=== PATIENT | female | born 1965 | race African-American/Black ===

== ENCOUNTER 2019-02-17 05:57 | Day surgery (SDC) | payer MEDICARE ==
[2019-02-16 09:26] VITALS: BMI 36.0
[2019-02-17 06:47] LABS: #Basophils 0.1 thou/uL (0.0-0.2); #Eosinphils 0.2 thou/uL (0.0-0.7); #Lymphocytes 2.5 thou/uL (1.20-3.40); #Monocytes 0.6 thou/uL (0.11-0.59); #Neutrophils 3.8 thou/uL (1.40-6.50); %Eosinophils 3.5 % (0.0-10.0); %Lymphocytes 35.2 % (21.0-51.0); %Monocytes 8.2 % (0.0-10.0); %Neutrophils 52.1 % (42.0-75.0); Hemoglobin 13.7 g/dL (12.0-16.0); Mean Corpuscular HGB CONC 32.2 g/dL (32.0-36.0); Mean Corpuscular Hemoglobin 29.1 pg (27.0-31.0); Mean Corpuscular Volume 90.5 fL (78.0-98.0); Mean Platelet Volume 6.5 fL (7.4-10.4); Platelet Count 404 thou/uL (130-400); RBC Distribution Width 12.4 % (11.5-14.5); White Blood Cell (WBC) Count 7.2 thou/uL (4.8-10.8)
[2019-02-17] MEDS ORDERED: Clindamycin/D5W 600 mg/50 ml Premix Bag ONE (06:47)
[2019-02-17 07:06] LABS: Anion Gap 12 mmol/L (10-20); BUN (Urea Nitrogen) 19 mg/dL (9.8-20.1); Calc. Creatinine Clearance 113 mL/min (70-130); Carbon Dioxide 21 mmol/L (22-29); Chloride 110 mmol/L (98-107); Estimated GFR-MDRD 75; Glucose 86 mg/dL (70-105); Potassium 3.9 mmol/L (3.5-5.1); Sodium 139 mmol/L (136-145)
[2019-02-17] MEDS ORDERED: Fentanyl 100 MCG/2 ML VIAL ONE (07:12)
--- NOTE | 2019-02-17 12:54 | OP ---
DATE OF PROCEDURE: 02/17/2019 PREOPERATIVE DIAGNOSIS: Lateral meniscus tear. POSTOPERATIVE DIAGNOSIS: Lateral meniscus tear, 5 separate loose bodies. PROCEDURES: Arthroscopic lateral meniscectomy and removal of loose bodies. FINDINGS: [id number] arthritis, lateral compartment, multiple loose bodies, complex tear of the lateral meniscus. PROCEDURE IN DETAIL: The patient taken to the operating room where general anesthesia induced. Right leg was prepped in sterile fashion. Scope was placed in the lateral portal, probe was placed in a medial portal. Findings were as above. I removed multiple loose bodies through the medial compartment portal in the medial compartment and anterior and medial compartment. I removed no loose body from the lateral compartment, most of the lateral meniscus was torn in a large bucket-handle type configuration detached anteriorly and posteriorly, removed as large pieces, removed the remainder of the meniscus. There was exposed bone on the lateral femoral condyle, lateral tibial plateau, which were in contact. The knee was drained. Sterile dressings applied. Job ID: [id number]
== END 2019-02-17 09:55 | disposition home or self-care (01) ==
LOC: SDC 05:57
PROVIDERS: ATTEND Orthopaedic Surgery
PROC: 0SBC4ZZ Excision of Right Knee Joint, Percutaneous Endoscopic Approach (ICD-10-PCS; principal; 2019-02-17)
DX: S83.251A Bucket-handle tear of lateral meniscus, current injury, right knee, initial encounter (principal); M17.11 Unilateral primary osteoarthritis, right knee; I10 Essential (primary) hypertension; K21.9 Gastro-esophageal reflux disease without esophagitis; F32.9 Major depressive disorder, single episode, unspecified; Z79.899 Other long term (current) drug therapy; Z88.0 Allergy status to penicillin; X58.XXXA Exposure to other specified factors, initial encounter
CPT/HCPCS: 36415; 80048; 85025; J3010; J3490

== ENCOUNTER 2023-11-06 10:31 | Outpatient (CLI) | payer OTHER ==
[2023-11-06 12:43] LABS: #Basophils 0.07 10x3/uL (0.0-0.2); #Eosinphils 0.28 10x3/uL (0.0-0.5); #Monocytes 0.49 10x3/uL (0.0-1.1); #Neutrophils 2.87 10x3/uL (1.5-8.4); %Basophils 1.3 % (0.0-2.0); %Eosinophils 5.1 % (0.0-6.0); %Lymphocytes 32.1 % (18.0-47.0); %Monocytes 8.9 % (0.0-10.0); %Neutrophils 52.4 % (40.0-75.0); Hematocrit 38.9 % (34.9-44.5); Hemoglobin 13.2 g/dL (12.0-15.5); Mean Corpuscular HGB CONC 33.9 g/dL (32.0-36.0); Mean Corpuscular Hemoglobin 30.6 pg (27.0-33.0); Mean Corpuscular Volume 90.3 fL (81.6-98.3); Mean Platelet Volume 9.5 fL (7.4-10.4); Platelet Count 350 10x3/uL (150-450); RBC Distribution Width 12.8 % (11.5-14.5); Red Blood Cell (RBC) Count 4.31 10x6/uL (3.90-5.03); White Blood Cell (WBC) Count 5.5 10x3/uL (3.5-10.5)
[2023-11-06 13:05] LABS: Anion Gap 14 mmol/L (10-20); BUN (Urea Nitrogen) 16 mg/dL (9.8-20.1); Calc. Creatinine Clearance 0 mL/min (70-130); Carbon Dioxide 28 mmol/L (22-29); Chloride 102 mmol/L (98-107); Estimated GFR 66; Glucose 75 mg/dL (70-105); Potassium 3.8 mmol/L (3.5-5.1); Sodium 140 mmol/L (136-145)
== END 2023-11-06 10:32 | disposition home or self-care (01) ==
LOC: LABBT 10:31
PROVIDERS: ATTEND Orthopaedic Surgery
DX: Z01.818 Encounter for other preprocedural examination (principal); M17.11 Unilateral primary osteoarthritis, right knee
CPT/HCPCS: 80048; 85025; 85610; 87081; 93005; 93010

== ENCOUNTER 2023-11-10 07:00 | Observation (INO) | payer OTHER ==
[2023-11-10] MEDS ORDERED: Vancomycin (BATCH) 1.5 GM/300 ML BAG ONE (07:17)
[2023-11-10] MEDS ORDERED: Sodium Chloride 0.9% 100 ML ONE ×2 (07:17→09:32)
[2023-11-10] MEDS ORDERED: Tranexamic Acid 1,000 MG/10 ML VIAL ONE (07:17)
[2023-11-10] MEDS ORDERED: Midazolam HCl 2 mg/2 ml Vial ONE (07:49)
[2023-11-10] MEDS ORDERED: fentaNYL 50 mcg/mL 1 mL Vial ONE ×5 (07:49→14:34)
[2023-11-10] MEDS ORDERED: Bupivacaine PF 0.5% 30 ML VIAL ONE (07:50)
[2023-11-10] MEDS ORDERED: PROPOFOL 20 ML ONE (08:52)
[2023-11-10] MEDS ORDERED: fentaNYL PF 100 MCG/2 ML SYRINGE ONE (08:52)
[2023-11-10] MEDS ORDERED: EPINEPHrine 1 MG/ML VIAL ONE (09:08)
[2023-11-10] MEDS ORDERED: Bupivacaine 0.25% HCL 30 ML VIAL ONE (09:09)
[2023-11-10] MEDS ORDERED: CEFAZOLIN 2 GM VIAL ONE (09:31)
[2023-11-10] MEDS ORDERED: Ketorolac Tromethamine 30 MG (1 mL) VIAL ONE (10:00)
[2023-11-10] MEDS ORDERED: Lidocaine 1% PF 5 ML VIAL ONE (10:00)
[2023-11-10] MEDS ORDERED: Dexamethasone 20 MG/5 ML VIAL ONE (10:00)
[2023-11-10] MEDS ORDERED: fentaNYL 50 mcg/mL 1 mL Vial SLOW IVP PRN (10:11)
[2023-11-10] MEDS ORDERED: Zolpidem Tartrate 5 MG TAB PO PRN ×2 (10:15→13:47)
[2023-11-10] MEDS ORDERED: Promethazine HCl 25 MG/ML VIAL IM PRN ×2 (10:15→13:47)
[2023-11-10] MEDS ORDERED: HYDROcodone/Acetaminophen 5/325 mg Tablet PO PRN (10:15)
[2023-11-10] MEDS ORDERED: Ondansetron PF 4 MG/2 ML Vial IVP PRN ×2 (10:15→13:47)
[2023-11-10] MEDS ORDERED: Ropivacaine 0.2% 550 ML 550 ML NERVE BLCK SCH (10:15)
[2023-11-10] MEDS ORDERED: traMADol HCl 50 MG TAB PO PRN (10:15)
[2023-11-10] MEDS ORDERED: HYDROmorphone 2 MG/ML VIAL ONE (10:22)
[2023-11-10] MEDS ORDERED: PHENYLEPHRINE-NS 100 MCG/ML 10 ML SYRINGE ONE ×2 (10:50→11:04)
[2023-11-10] MEDS ORDERED: diphenhydrAMINE 25 MG CAP PO PRN (13:47)
[2023-11-10] MEDS: Ketorolac Tromethamine 30 MG (1 mL) VIAL IVP SCH (14:28)
[2023-11-10] MEDS: Dextrose 5 %-0.45 % NaCl 1,000 ML IV SCH (14:31)
[2023-11-10 15:30] VITALS: BMI 33.2
[2023-11-10] MEDS: HYDROcodone/Acetaminophen 5/325 mg Tablet PO PRN (16:24)
[2023-11-10] MEDS: CEFAZOLIN 2 GM in Sodium Chloride 0.9% 100 ML IVPB SCH (18:41)
[2023-11-10] MEDS ORDERED: Dicyclomine 10 MG CAP PO PRN (19:43)
[2023-11-10] MEDS: Aspirin 81 mg Enteric Coated Tablet PO SCH (21:40)
[2023-11-10] MEDS: traZODone HCl 50 MG TAB PO SCH (21:40)
[2023-11-10] MEDS: Ferrous Gluconate 324 MG TAB PO SCH (21:41)
[2023-11-10] MEDS: Gabapentin 400 MG CAP PO SCH (21:41)
[2023-11-10] MEDS: Senokot S 8.6-50 MG TAB PO SCH (21:42)
[2023-11-10] MEDS: tiZANidine HCl 4 MG TAB PO SCH (21:42)
[2023-11-11 06:16] LABS: Hematocrit 33.3 % (36.0-47.0); Hemoglobin 10.7 g/dL (12.0-16.0); Mean Corpuscular HGB CONC 32.1 g/dL (32.0-36.0); Mean Corpuscular Hemoglobin 29.2 pg (27.0-31.0); Mean Corpuscular Volume 90.7 fL (78.0-98.0); Mean Platelet Volume 9.7 fL (7.4-10.4); Platelet Count 305 10x3/uL (130-400); RBC Distribution Width 13.3 % (11.5-14.5); Red Blood Cell (RBC) Count 3.67 mill/uL (4.20-5.40)
[2023-11-11 08:02] VITALS: TEMP 97.9
[2023-11-11] MEDS: traMADol HCl 50 MG TAB PO PRN (10:24)
[2023-11-11] MEDS: Acetaminophen 325 MG TAB PO PRN (10:25)
[2023-11-11] MEDS: Pantoprazole DR 40 MG TAB PO SCH (10:31)
[2023-11-11] MEDS: Multivitamin W/ Minerals 1 TAB PO SCH (10:31)
[2023-11-11] MEDS: Escitalopram Oxalate 10 mg Tablet PO SCH (10:32)
[2023-11-11 14:34] VITALS: BP 125/65
== END 2023-11-11 14:36 | disposition home or self-care (01) ==
LOC: SDC 07:00 → SJJU 15:07
PROVIDERS: ADMIT Orthopaedic Surgery; ATTEND Orthopaedic Surgery
PROC: 0SRC0JZ Replacement of Right Knee Joint with Synthetic Substitute, Open Approach (ICD-10-PCS; principal; 2023-11-10)
DX: M17.31 Unilateral post-traumatic osteoarthritis, right knee (principal); I10 Essential (primary) hypertension; K21.9 Gastro-esophageal reflux disease without esophagitis; F32.A Depression, unspecified; G47.00 Insomnia, unspecified; Z98.890 Other specified postprocedural states; Z79.899 Other long term (current) drug therapy; Z88.0 Allergy status to penicillin
CPT/HCPCS: 0055T; 27447; 64447; 73560; 85027; 97110 ×2; 97116 ×2; 97530 ×2; A4306; C1713; C1776; C1889; J0171; J0665 ×2; J1100; J1170; J1885 ×2; J2250; J2704; J2795; J3010; J3370; J3490 ×2; 36415